=== PATIENT | female | born 1960 | race Caucasian/White ===

== ENCOUNTER 2016-06-03 18:10 | Emergency (ER) | payer OTHER ==
--- NOTE | 2016-06-03 18:23 | CPEKG ---
Heart Rate: 74 RR Interval: 811 P-R Interval: 148 QRSD Interval: 100 QT Interval: 388 QTC Interval: 431 P Lockhart: 69 QRS Lockhart: 60 T Wave Lockhart: 43 EKG Severity - NORMAL ECG - EKG Impression: SINUS RHYTHM Electronically Signed By: Josias Parks 03-Jun-2016 18:33:46
--- NOTE | 2016-06-03 18:30 | UCPHY ---
H & P Time Seen by Provider: 06/03/16 18:29 Patient Type: Established HPI/ROS: Chief complaint. Chest pain HPI. 55-year-old female with 2 day history of chest discomfort. She tells me she had pain across both sides of her chest. It was sharp and aching. There was no radiation. She had no shortness of breath. She feels this may be her GERD. Symptoms were not worse with breathing position activity. They seem to be somewhat better with drinking water and having her massage therapist do a diaphragm manipulation. She is concerned because she feels her heart pounding and she had an episode of atrial fibrillation in October of 2014. ROS Constitutional. no fever/chills, no weakness Eyes. no problems with vision ENT. no sore throat, no nasal drainage Cardiovascular. Chest pain Respiratory. no shortness of breath, no cough Abdominal. no abdominal pain, no nausea/vomiting, no diarrhea . no problems urinating MS. no calf pain/swelling, no neck/back pain, no joint pain Skin. no rash Lymph. no swollen glands Neuro. no headache, no dizziness, no difficulty walking or with speech Past Medical/Surgical History: Atrial fibrillation, GERD, dyslipidemia Father with 2 open heart surgeries and by myocardial infarction. Mother and siblings with atrial fibrillation Social History: , daily smoker, no alcohol Smoking Status: Heavy smoker Physical Exam: General Appearance: Alert well-developed female, anxious, mild distress vital signs are stable Eyes: Pupils equal and round no pallor or injection. ENT, Mouth: Mucous membranes are moist. Respiratory: There are no retractions, lungs are clear to auscultation. Cardiovascular: Regular rate and rhythm. Gastrointestinal: Abdomen is soft and nontender, no masses, bowel sounds normal. Neurological: Awake and alert, sensory and motor exams grossly normal. Skin: Warm and dry, no rashes. Musculoskeletal: Neck is supple nontender. Extremities symmetrical, full range of motion. Psychiatric: Patient is oriented X 3, there is no agitation. Constitutional: Initial Vital Signs Temperature (C) 36.6 C 06/03/16 18:15 Heart Rate 75 06/03/16 18:15 Respiratory Rate 16 06/03/16 18:15 Blood Pressure 124/88 H 06/03/16 18:15 O2 Sat (%) 98 06/03/16 18:15 O2 Delivery Mode Room Air Allergies/Adverse Reactions: amoxicillin [Amoxicillin] Allergy (Verified 06/03/16 18:30) Hives apple [Apple] Allergy (Verified 06/03/16 18:30) ASTHMA cefuroxime axetil [From Ceftin] Allergy (Verified 06/03/16 18:30) Hives fish derived [Fish derived] Allergy (Verified 06/03/16 18:30) ASTHMA levofloxacin [From Levaquin] Allergy (Verified 06/03/16 18:30) ITCH lidocaine [Lidocaine] Allergy (Verified 06/03/16 18:30) THROAT SWELLING milk [Milk] Allergy (Verified 06/03/16 18:30) ASTHMA Penicillins Allergy (Verified 06/03/16 18:30) Hives Shellfish *RETIRED-01/30/12 [Shellfish] Allergy (Verified 06/03/16 18:30) ASTHMA Sulfa (Sulfonamide Antibiotics) Allergy (Verified 06/03/16 18:30) Hives BERRIES Allergy (Uncoded 06/03/16 18:31) ASTHMA IV CONTRAST DYES Allergy (Uncoded 06/03/16 18:31) ITCH LETTUCE Allergy (Uncoded 06/03/16 18:31) ASTHMA SPINICH Allergy (Uncoded 06/03/16 18:31) ASTHMA Home Medications: Medication Instructions Recorded Levothyroxine [Synthroid 100 mcg 100 mcg PO DAILY06 11/03/11 (RX)] Omeprazole/Sodium Bicarbonate 40 mg PO DAILY 11/03/11 [Zegerid 40 mg Capsule] Rizatriptan Benzoate [Maxalt] 10 mg PO PRN PRN 11/03/11 Medical Decision Making - Diagnostics EKG Interpretation: EKG interpreted by me shows normal sinus rhythm with normal interval and axis. QRS is normal there is no significant ST elevation or depression. The rate is 74. This EKG is not changed from comparison EKGs in October of 2014 Imaging: One-view chest x-ray interpreted by me is normal CT angio go to chest reviewed by me and discussed Dr. Torres shows no evidence for pulmonary embolus. There is LAD calcification Procedures: IV normal saline, monitor GI cocktail contains lidocaine of which patient lists an allergy. Maalox was ordered. Patient declines ED Course/Re-evaluation: Re-evaluation 8:35 p.m. patient is stable and without symptoms The patient, her , and I discussed imaging and lab results. I recommended admission for evaluation as concern that the patient's symptoms are coming from her heart. The patient expresses understanding and refuses admission. She has a follow-up appointment on Monday with business analyst and will call her rn relief charge. I encouraged her to return over the weekend for worsening chest discomfort or breathing. Differential Diagnosis: I considered acute coronary syndrome, pulmonary embolus, pneumonia, pancreatitis , GERD - Data Points Laboratory Results: Laboratory Results 06/03/16 18:53 06/03/16 18:53 06/03/16 18:53 WBC 7.93 10^3/uL (3.80-9.50) RBC 4.80 10^6/uL (4.18-5.33) Hgb 15.7 g/dL (12.6-16.3) Hct 44.5 % (38.0-47.0) MCV 92.7 fL (81.5-99.8) MCH 32.7 pg (27.9-34.1) MCHC 35.3 g/dL (32.4-36.7) RDW 13.2 % (11.5-15.2) Plt Count 178 10^3/uL (150-400) MPV 11.0 fL (8.7-11.7) Neut % (Auto) 47.9 % (39.3-74.2) Lymph % (Auto) 44.5 % (15.0-45.0) [place] % (Auto) 5.2 % (4.5-13.0) Eos % (Auto) 1.5 % (0.6-7.6) Baso % (Auto) 0.6 % (0.3-1.7) Nucleat RBC Rel Count 0.0 % (0.0-0.2) Absolute Neuts (auto) 3.80 10^3/uL (1.70-6.50) Absolute Lymphs (auto) 3.53 H 10^3/uL (1.00-3.00) Absolute Monos (auto) 0.41 10^3/uL (0.30-0.80) Absolute Eos (auto) 0.12 10^3/uL (0.03-0.40) Absolute Basos (auto) 0.05 10^3/uL (0.02-0.10) Absolute Nucleated RBC 0.00 10^3/uL (0-0.01) Immature Gran % 0.3 % (0.0-1.1) Immature Gran # 0.02 10^3/uL (0.00-0.10) D-Dimer 2.26 H ug/mLFEU (0.00-0.50) Sodium 138 mEq/L (134-144) Potassium 3.5 mEq/L (3.5-5.2) Chloride 102 mEq/L (97-110) Carbon Dioxide 25 mEq/l (22-31) Anion Gap 11 mEq/L (8-16) BUN 16 mg/dL (7-23) Creatinine 0.9 mg/dL (0.6-1.0) Estimated GFR > 60 Glucose 112 H mg/dL (70-100) Calcium 9.5 mg/dL (8.5-10.4) Troponin I < 0.012 ng/mL (0-0.034) Lipase 134.0 IU/L (23-300) Medications Given: Discontinued Medications Al Hydroxide/Mg Hydroxide (Maalox Susp) 30 ml PO EDNOW ONE Stop: 06/03/16 19:09 Last Admin: 06/03/16 19:25 Dose: Not Given Departure - Departure Disposition: Home, Routine, Self-Care Clinical Impression: Chest pain Qualifiers: Chest pain type: unspecified Qualifier Code: (R07.9) Chest pain, unspecified Condition: Good Instructions: Chest Pain (ED), Gastroesophageal Reflux Disease (ED) Additional Instructions: Continue the omeprazole for your stomach. Add Maalox using 2 tbsp every 6 hours and at bedtime for discomfort. Return for worsening chest discomfort or trouble breathing. Keep her follow-up appointment with Dr. Tellez on Monday. Call Dr. Chacon on Monday for further evaluation Referrals: ANISHA ECKERT [Primary Care Provider] - As per Instructions Sandeep Tellez MD [Medical Doctor] - As per Instructions Preston Chacon MD [Medical Doctor] - As per Instructions - PQRS PQRS Measurement: 134: Depression screening and followup, PRIME -PHQ2 (12 years and older) Over the last 2 weeks, how often have you been bothered by any of the following problems? 1. Feeling down, depressed, or hopeless? 2. Little interest or pleasure in doing things? Patient answered no to both 1 and 2 130: Documentation of medications. Reviewed all patient medications, doses, route and frequency. 226: Do you smoke? Yes, counseled to stop.
[2016-06-03 18:40] VITALS: RESP 16; TEMP 97.9
[2016-06-03 19:02] LABS: % IMMATURE GRANULYOCYTES 0.3 % (0.0-1.1); ABSOLUTE IMMATURE GRANULOCYTES 0.02 10^3/uL (0.00-0.10); ADD DIFF? NO; ADD MORPH? NO; ADD SCAN? NO; ATYPICAL LYMPHOCYTE FLAG 20 (0-99); FRAGMENT RBC FLAG 0 (0-99); HEMATOCRIT 44.5 % (38.0-47.0); HEMOGLOBIN 15.7 g/dL (12.6-16.3); LEFT SHIFT FLG 0 (0-99); LIPEMIA HEMOLYSIS FLAG 90 (0-99); MEAN CELL HEMOGLOBIN 32.7 pg (27.9-34.1); MEAN CELL HEMOGLOBIN CONCENTR. 35.3 g/dL (32.4-36.7); MEAN CELL VOLUME 92.7 fL (81.5-99.8); PLATELET CLUMPS FLAG 0 (0-99); PLATELET COUNT 178 10^3/uL (150-400); RED CELL DISTRIBUTION WIDTH 13.2 % (11.5-15.2)
[2016-06-03] MEDS ORDERED: MAG HYDROX/AL HYDROX/SIMETH 30 ML UDCUP PO ONE (19:08)
[2016-06-03 19:15] LABS: ANION GAP 11 mEq/L (8-16); CALCIUM 9.5 mg/dL (8.5-10.4); CARBON DIOXIDE 25 mEq/l (22-31); CHLORIDE 102 mEq/L (97-110); CREATININE 0.9 mg/dL (0.6-1.0); GLOMERULAR FILTRATION RATE > 60; GLUCOSE 112 mg/dL (70-100); POTASSIUM 3.5 mEq/L (3.5-5.2); SODIUM 138 mEq/L (134-144)
[2016-06-03 19:28] LABS: TROPONIN I < 0.012 ng/mL (0-0.034)
[2016-06-03] MEDS ORDERED: NS 1,000 ML IV ONE (19:42)
[2016-06-03] MEDS ORDERED: IOPAMIDOL (ISOVUE 370) 100 ML BTL IV ONE (19:43)
--- NOTE | 2016-06-03 19:48 | DX ---
Portable PA Chest, at 6:59 p.m. Clinical History: 55-year-old female with chest pain for 2 days. Comparison Study: None. Findings: Telemetry monitoring lead lines are present. There is a mild biphasic thoracolumbar scolios is, with a dextrorotatory midthoracic component and a mild upper levolumbar component. The cardiac an d mediastinal silhouette is normal. There is no focal infiltrate, atelectasis, pleural effusion, chapis pheral interstitial edema, or pneumothorax. The trachea is midline. A portion of the inferolateral ri ght rib cage has been excluded. Impression: No acute conventional radiographic abnormality.
--- NOTE | 2016-06-03 20:25 | CT ---
Contrast-Enhanced CT Scan of the Chest (CT Angiography) Clinical History: 55-year-old female with a prior tobacco use history, complaining of chest pain and dyspnea. The patient has an elevated d-dimer, and a negative serum troponin level. Technique: A SmartPrep timing bolus was used. The patient received 90 mL of IV Isovue-370 without com plication, and a multidetector helical CT scan was obtained from the base of the neck inferiorly to t he upper abdomen, reformatted at 1.25 mm increments, and reviewed at a variety of window and level se ttings. Multiplanar reconstructions are reviewed on workstation. The DFOV is 36.0 cm. A dose reductio n protocol was used. Comparison Study: Chest radiography from earlier this evening at 6:59 p.m. Findings: CT Angiography of the Chest: The ascending thoracic aorta measures 3.3 x 3.4 cm, and the descending t horacic aorta measures 2.1 x 2.0 cm. There is no evidence of yulisa aneurysm or dissection. There is a normal anatomic arrangement of the great vessels off of the aortic arch. The upper abdominal aorta i s normal in size. The main pulmonary artery, the main right and the main left pulmonary arteries, and the first, second, and third order pulmonary segments are contrast-opacified. There is no filling de fect to suggest acute or chronic thromboemboli. There is no interventricular septal bowing, or signif icant reflux of contrast into the intrahepatic IVC. The pericardium is normal. The cardiac chambers a re normal in size. There is some atherosclerotic calcific plaque associated with the left anterior de scending coronary artery. Contrast-Enhanced CT Scan of the Chest: There is some very mild central perihilar bronchial wall thic kening. There is no centrilobular emphysema or subpleural bullous change. There is no focal alveolar consolidation or pleural effusion. There is no axillary or intrathoracic adenopathy. The osseous stru ctures are notable for a mild biphasic thoracolumbar scoliosis. There is no lytic or blastic lesion. The visualized upper abdomen is normal, given the arterial phase of contrast enhancement. Impression: 1. There is no CT evidence of pulmonary artery thromboemboli. 2. There is some LAD coronary artery atherosclerotic calcification, but no evidence of congestive hea rt failure or focal infiltrate. 3. Mild biphasic thoracolumbar scoliosis. Results were discussed with Dr. Josias Parks. A test result has been communicated to a licensed care provider and documented in [facility], 8:19:25 PM , 06/03/2016, [facility] Message ID [id number].
[2016-06-03 21:25] VITALS: BP 124/75; PULSE 72; O2SAT 97
== END 2016-06-03 21:00 | disposition home or self-care (01) ==
LOC: CED 18:10
DX: R07.9 Chest pain, unspecified (principal); I48.91 Unspecified atrial fibrillation; K21.9 Gastro-esophageal reflux disease without esophagitis; E78.5 Hyperlipidemia, unspecified; F17.200 Nicotine dependence, unspecified, uncomplicated; Z88.0 Allergy status to penicillin; Z88.2 Allergy status to sulfonamides
CPT/HCPCS: 71010-PO; 71275-PO; 80048-PO; 83690-PO; 84484-PO; 85025-PO; 85378-PO; 93010-PO; 96360-PO; 99215-PO; G0463-PO; Q9967

== ENCOUNTER → 2016-07-01 | Outpatient (CLI) | payer OTHER ==
--- NOTE | 2016-07-01 16:11 | US ---
Ultrasound Pelvis (Endovaginal) History: N95.0, postmenopausal bleeding. Comparison: None. Technique: Endovaginal ultrasound images were obtained only as per physician request. Doppler/Duplex imaging of adnexa. Findings: Uterus measures 3.5 x 3.2 x 2.1 cm. Endometrial thickness is 4 mm in thickness. No uterine leiomyomata. Right ovary measures 2.2 x 1.1 x 0.7 cm. Left ovary nonvisualized. No adnexal masses. No free fluid i n the pelvis. Color Doppler flow to right ovary without torsion. Impression: 1. Atrophic uterus without uterine leiomyomata or abnormal endometrial thickening. 2. Normal right ovary. 3. Nonvisualization of left ovary. 4. No adnexal masses or ascites.
== END ==
LOC: BRMIMAGING 13:47
PROVIDERS: ATTEND Family Medicine
DX: N85.8 Other specified noninflammatory disorders of uterus (principal)
CPT/HCPCS: 76830-PO

== ENCOUNTER → 2016-12-29 | Outpatient (CLI) | payer OTHER | LOC: BRMIMAGING 14:04 | PROVIDERS: ATTEND Nurse Practitioner Family | DX: M79.604 Pain in right leg (principal) | CPT/HCPCS: 93971-PO ==

== ENCOUNTER → 2017-06-22 | Outpatient (CLI) | payer OTHER | LOC: BRMIMAGING 14:56 | PROVIDERS: ATTEND Family Medicine | DX: Z12.31 Encounter for screening mammogram for malignant neoplasm of breast (principal) ==

== ENCOUNTER → 2017-06-29 | Outpatient (CLI) | payer OTHER | LOC: BRMIMAGING 08:46 | PROVIDERS: ATTEND Family Medicine | DX: R92.0 Mammographic microcalcification found on diagnostic imaging of breast (principal) ==

== ENCOUNTER → 2017-07-10 | Day surgery (SDC) | payer OTHER ==
[~2017-07-10] MED LIST: BUPIVACAINE 0.5% 30 ML SDV ONE; CHLOROPROCAINE HCL 2% 400 MG/20 ML VIAL IV ONE; THROMBIN (BOVINE) 5,000 UNIT VIAL TP ONE
== END | disposition home or self-care (01) ==
LOC: FIMAGING 07:11
PROVIDERS: ATTEND Family Medicine
PROC: 0HBT3ZX Excision of Right Breast, Percutaneous Approach, Diagnostic (ICD-10-PCS; principal; 2017-07-10)
DX: N60.11 Diffuse cystic mastopathy of right breast (principal)
CPT/HCPCS: J2400

== ENCOUNTER → 2018-01-11 | Outpatient (CLI) | payer OTHER | LOC: BRMIMAGING 09:52 | PROVIDERS: ATTEND Family Medicine | DX: R92.0 Mammographic microcalcification found on diagnostic imaging of breast (principal); M85.89 Other specified disorders of bone density and structure, multiple sites ==

== ENCOUNTER → 2018-02-23 | Outpatient (CLI) | payer OTHER | LOC: BRMIMAGING 08:05 | PROVIDERS: ATTEND Nurse Practitioner Family | DX: R11.0 Nausea (principal); R10.13 Epigastric pain | CPT/HCPCS: 76705-PO ==

== ENCOUNTER → 2018-06-29 | Outpatient (CLI) | payer OTHER | LOC: BRMIMAGING 08:20 | PROVIDERS: ATTEND Family Medicine | DX: Z12.31 Encounter for screening mammogram for malignant neoplasm of breast (principal) ==